=== PATIENT | female | born 1950 | race Caucasian/White ===

== ENCOUNTER 2019-09-30 09:53 | Emergency (ER) | payer OTHER ==
[~2019-09-30] VITALS: Ht 172.7 cm; Wt 72.1 kg
--- NOTE | 2019-09-30 09:55 | NUR ---
PT BIBA BLS TO ER BED 7
[2019-09-30 10:02] VITALS: BP 132/61
--- NOTE | 2019-09-30 10:02 | NUR ---
PUPILS ASSESSED, PERRLA VISUALIZED.
--- NOTE | 2019-09-30 10:02 | NUR ---
69 YO NONVERBAL [facility] PER EMS PT FELL AT 0615 THIS AM AND HAD 250 CC OF COFFEE GROUND EMESIS. UNABLE TO DETERMINE LOC. PT HAS A GTUBE. PRESENTED WITH DIARRHEA. SKIN INTACT. SIDE RAILS X2. HX: DM2, HYPERLIPIDEMIA, GERD, REFLUX DISEASE, DYSPHAGIA, HTN RX: PROSTAT SE, DULCOLAX, SIMVASTATIN, CLOPIDOGREL, PEPCID, ENALAPRIL, METOPROLOL NKA
--- NOTE | 2019-09-30 10:08 | NUR ---
ERMD BEDSIDE EVALUATING PT
--- NOTE | 2019-09-30 10:27 | NUR ---
LAB AT BEDSIDE.
[2019-09-30 10:40] LABS: BASOPHILS # (AUTO) 0.1 K/uL (0.00-0.22); BASOPHILS % (AUTO) 0.7 % (0.0-2.0); EOSINOPHILS % (AUTO) 0.3 % (0.0-4.0); HEMATOCRIT 42.1 % (36-48); HEMOGLOBIN 13.8 g/dL (12.0-16.0); LYMPHOCYTES # (AUTO) 2.9 K/uL (2.5-16.5); LYMPHOCYTES % (AUTO) 23.8 % (20.5-51.1); MEAN CORPUSCULAR HEMOGLOBIN 29 pg (27-31); MEAN CORPUSCULAR HGB CONC 33 g/dL (33-37); MEAN CORPUSCULAR VOLUME 87.7 fL (80-94); MONOCYTES # (AUTO) 0.5 K/uL (0.8-1.0); MONOCYTES % (AUTO) 4.4 % (1.7-9.3); NEUTROPHILS # (AUTO) 8.6 K/uL (1.8-7.7); NEUTROPHILS % (AUTO) 70.8 % (42.2-75.2); PLATELET COUNT (AUTO) 223 K/uL (140-450); RED CELL DISTRIBUTION WIDTH 13.3 % (11.6-13.7); WHITE BLOOD COUNT (AUTO) 12.2 K/uL (4.8-10.8)
[2019-09-30 10:47] LABS: ANION GAP 11.9 (8-16); CARBON DIOXIDE 29.6 mmol/L (21-32); CREATININE 0.7 mg/dL (0.6-1.3); POTASSIUM 3.5 mmol/L (3.5-5.1)
[2019-09-30 10:52] LABS: PROTHROMBIN TIME 10.5 secs (10.8-13.4)
[2019-09-30 10:53] LABS: ALBUMIN 3.1 g/dL (3.4-5.0); TOTAL BILIRUBIN 0.4 mg/dL (0.0-1.0)
[2019-09-30 11:04] LABS: BILIRUBIN,URINE NEGATIVE (NEGATIVE); BLOOD, URINE 2+ (NEGATIVE); COLOR,URINE YELLOW (YELLOW); LEUKOCYTE ESTERASE ,URINE 1+ (NEGATIVE); NITRITE, URINE NEGATIVE (NEGATIVE); UGLUCOSE NEGATIVE (NEGATIVE)
[2019-09-30 11:05] LABS: APPEARANCE,URINE CLOUDY (CLEAR)
[2019-09-30 11:13] LABS: RBC,URINE 11-20 (MOD) /HPF (0-5)
[2019-09-30 11:14] LABS: URINE AMORPHOUS URATE 1+ /HPF (None Seen)
--- NOTE | 2019-09-30 11:17 | NUR ---
IV ATTEMPTED AND UNSUCCESSFUL. ER MD MADE AWARE. MD SAID TO HOLD OFF ON IV ORDER FOR TIME BEING.
--- NOTE | 2019-09-30 11:38 | NUR ---
PT RESTING IN BED, SIDE RAIL X2
--- NOTE | 2019-09-30 13:42 | NUR ---
REPORT GIVEN TO RENA COLEMAN AT [facility].
--- NOTE | 2019-09-30 13:55 | NUR ---
VSS, PT RESTING IN BED, RR EVEN AND UNLABORED.
[2019-09-30 14:14] VITALS: BP 146/57
--- NOTE | 2019-09-30 14:14 | NUR ---
Patient discharged with v/s stable. Written and verbal after care instructions given and explained. Patient alert, oriented and verbalized understanding of instructions. Ambulance Transport with to snf. All questions addressed prior to discharge. ID band removed. Patient advised to follow up with PMD. Rx of keflex given. Patient educated on indication of medication including possible reaction and side effects. Opportunity to ask questions provided and answered.
== END 2019-09-30 14:14 | disposition home or self-care (01) ==
LOC: MED 09:53
DX: N39.0 Urinary tract infection, site not specified (principal); R11.2 Nausea with vomiting, unspecified; F03.90 Unspecified dementia, unspecified severity, without behavioral disturbance, psychotic disturbance, mood disturbance, and anxiety; I10 Essential (primary) hypertension; K21.9 Gastro-esophageal reflux disease without esophagitis; W06.XXXA Fall from bed, initial encounter; Y93.89 Activity, other specified; Y92.89 Other specified places as the place of occurrence of the external cause; Y99.8 Other external cause status
CPT/HCPCS: 36415; 80053; 81001; 83690; 84484; 85025; 85610; 85730; 86870; 86886; 86900; 86901; 87086; 99284

== ENCOUNTER 2020-11-27 11:58 | Emergency (ER) | payer OTHER ==
[~2020-11-27] VITALS: Ht 170.2 cm; Wt 74.8 kg
[2020-11-27 11:58] VITALS: BP 110/52
--- NOTE | 2020-11-27 11:59 | NUR ---
PT BIBA AND TAKEN TO BED 10.
--- NOTE | 2020-11-27 12:15 | NUR ---
70/F akash from [facility]. Per EMS, facility called 911 stating patient oxygen saturation dropped but they were unable to give an oxygen saturation and stated patients heart rate was in the 120s. When EMS arrived on scene patient was receiving 6L oxygen via nasal canula with an oxygen saturation of 96%. Patient is nonambulatory and nonverbal and is at baseline. Patient placed in gown, on bedside caridac monitor, blood pressure 110/52, pulse 92, oxygen 95% on room air, respirations 24.
[2020-11-27] MEDS ORDERED: SIMV20TA1 GT (12:18)
[2020-11-27] MEDS ORDERED: ASCO500T95 GT (12:18)
[2020-11-27] MEDS ORDERED: CLOP75TA55 GT (12:18)
[2020-11-27] MEDS ORDERED: NUTR887L GT (12:18)
[2020-11-27] MEDS ORDERED: METO25TA GT (12:18)
[2020-11-27] MEDS ORDERED: ENAL5TAB48 GT (12:18)
[2020-11-27] MEDS ORDERED: DOCU-299 GT (12:18)
[2020-11-27] MEDS ORDERED: ACET-2619 GT (12:18)
[2020-11-27] MEDS ORDERED: LANS15EC28 GT (12:18)
[2020-11-27] MEDS ORDERED: MULT-1328 GT (12:18)
[2020-11-27] MEDS ORDERED: NA P133E RC (12:19)
[2020-11-27] MEDS ORDERED: SENN-72 GT (12:19)
[2020-11-27] MEDS ORDERED: MAGN400S60 GT (12:19)
--- NOTE | 2020-11-27 12:45 | NUR ---
Monae swab collected and walked to lab.
--- NOTE | 2020-11-27 12:50 | NUR ---
Urine collected by straight catheter as ordered, urine sample walked down to lab.
[2020-11-27 13:03] LABS: APPEARANCE,URINE CLEAR (CLEAR); BILIRUBIN,URINE NEGATIVE (NEGATIVE); BLOOD, URINE NEGATIVE (NEGATIVE); COLOR,URINE YELLOW (YELLOW); LEUKOCYTE ESTERASE ,URINE NEGATIVE (NEGATIVE); NITRITE, URINE NEGATIVE (NEGATIVE); PH,URINE 5.5 (5.0-9.0); UGLUCOSE 3+ (NEGATIVE)
[2020-11-27 13:06] LABS: RBC,URINE 0-5 /HPF (0-5); WBC,URINE 0-5 /HPF (0-5)
[2020-11-27 13:07] LABS: BASOPHILS # (AUTO) 0.1 K/uL (0.00-0.22); BASOPHILS % (AUTO) 1.2 % (0.0-2.0); EOSINOPHILS # (AUTO) 0.2 K/uL (0-0.4); HEMATOCRIT 42.1 % (36-48); HEMOGLOBIN 13.7 g/dL (12.0-16.0); LYMPHOCYTES # (AUTO) 1.2 K/uL (2.5-16.5); LYMPHOCYTES % (AUTO) 10.6 % (20.5-51.1); MEAN CORPUSCULAR HEMOGLOBIN 29 pg (27-31); MEAN CORPUSCULAR HGB CONC 32 g/dL (33-37); MONOCYTES # (AUTO) 0.7 K/uL (0.8-1.0); MONOCYTES % (AUTO) 6.1 % (1.7-9.3); NEUTROPHILS # (AUTO) 9.2 K/uL (1.8-7.7); NEUTROPHILS % (AUTO) 80.1 % (42.2-75.2); PLATELET COUNT (AUTO) 172 K/uL (140-450); RED BLOOD CELL COUNT(AUTO) 4.74 MIL/uL (4.20-5.40); RED CELL DISTRIBUTION WIDTH 13.3 % (11.6-13.7); WHITE BLOOD COUNT (AUTO) 11.5 K/uL (4.8-10.8)
[2020-11-27] MEDS ORDERED: NACL 0.9% 1,000 ML IV ONE (13:35)
[2020-11-27] MEDS ORDERED: cefTRIAXone 1,000 MG VIAL ONE (13:42)
[2020-11-27 13:51] LABS: ALBUMIN 2.7 g/dL (3.4-5.0); ANION GAP 13.3 (8-16); ASPARTATE AMINOTRANSFERASE 27 U/L (15-37); CARBON DIOXIDE 28.5 mmol/L (21-32); CHLORIDE 110 mmol/L (98-107); CREATININE 0.7 mg/dL (0.6-1.3); GLUCOSE 386 mg/dL (74-106); POTASSIUM 3.8 mmol/L (3.5-5.1); SODIUM SERUM 148 mmol/L (136-145); TOTAL BILIRUBIN 0.6 mg/dL (0.0-1.0); UREA NITROGEN, BLOOD 30 mg/dL (7-18)
[2020-11-27] MEDS ORDERED: CEPH500C16 PO (14:15)
--- NOTE | 2020-11-27 14:58 | NUR ---
Patient will be picked up by [facility] BLS to be transferred back to [facility] care at 1630, report called and given to nurse at facility.
--- NOTE | 2020-11-27 17:33 | NUR ---
[facility] at bedside for transport.
[2020-11-27 17:53] VITALS: BP 120/60
[2020-12-04] MEDS ORDERED: AMOX-999 PO (10:20)
[2020-12-04] MEDS ORDERED: INSU100S22 SUBQ (10:20)
== END 2020-11-27 17:45 | disposition home or self-care (01) ==
LOC: MED 11:58
DX: E11.65 Type 2 diabetes mellitus with hyperglycemia (principal); Z20.822 Contact with and (suspected) exposure to COVID-19; E87.0 Hyperosmolality and hypernatremia; D72.829 Elevated white blood cell count, unspecified; N39.0 Urinary tract infection, site not specified; K21.9 Gastro-esophageal reflux disease without esophagitis; F03.90 Unspecified dementia, unspecified severity, without behavioral disturbance, psychotic disturbance, mood disturbance, and anxiety; I10 Essential (primary) hypertension; E78.5 Hyperlipidemia, unspecified; Z98.890 Other specified postprocedural states; Z79.899 Other long term (current) drug therapy; Z86.73 Personal history of transient ischemic attack (TIA), and cerebral infarction without residual deficits
CPT/HCPCS: 36415; 71045; 80053; 81001; 82948; 83605; 83690; 83880; 84484; 85025; 87040; 87086; 87426; 93005; 96365; 99285; J0696; J7030

== ENCOUNTER 2021-01-04 20:57 | Inpatient (IN) | payer OTHER, SELFPAY ==
[~2021-01-04] VITALS: Ht 165.1 cm; Wt 73.5 kg
--- NOTE | 2021-01-04 02:30 | NUR ---
ADMITTED THE PATIENT FROM ER VIA GURNEY. PATIENT AWAKE BUT LETHARGIC, NON VERBAL BASELINE. PT DX: WITH HYPOXIA AND UTI. PT WITH LABORED BREATHING, RR-40, SATING 94% TO 95% ON 5L/NC. CONNECTED THE PATIENT ON BUSINESS SERVICES OFFICER SHOWING ST, HR-108. HOB ELEVATED, SIDE RAILS UP X2, BED IN LOW POSITION AND BED ALARM ON. G- TUBE CLAMPED FOR NOW. IVF INFUSING ORDERED.CALL LIGHT WITHIN REACH. WILL CONTINUE POC.
[~2021-01-04 20:57] MED LIST: ACET-2619 GT; AMOX-999 PO; ASCO500T95 GT; CLOP75TA55 GT; DOCU-299 GT; ENAL5TAB48 GT; INSU100S22 SUBQ; LANS15EC28 GT; MAGN400S60 GT; METO25TA GT; MULT-1328 GT; NA P133E RC; NUTR887L GT; SENN-72 GT; SIMV20TA1 GT
[2021-01-04 21:00] VITALS: BP 136/46
[2021-01-04] MEDS ORDERED: cefTRIAXone 1,000 MG in DEXT 5% MINI-BAG PLUS 50 ML IV ONE (21:00)
--- NOTE | 2021-01-04 21:00 | NUR ---
CHIQUI MESA TAKEN TO BED #8
--- NOTE | 2021-01-04 21:00 | NUR ---
[place] [facility] [place] HYPOXIA SINCE THIS MORNING, PT HAS BEEN DESATURING IN THE 80% RANGE PER [facility] REPORT. PT ARRIVED ON NONREBREATHER, 15L, O2 SAT 99%. PT NOTED WITH LABORED BREATHING, TACHYPNEA, DIAPHORETIC. GCS 9, NONVERBAL, BEDBOUND AT BASELINE. PER [facility] REPORT, ACCUCHECK 496. IV 18G NOTED TO LEFT WRIST, EST. BY [facility]. PT INCONTINENT. TEMP. ON ARRIVAL 101.4. SKIN INTACT, NOTED WITH BARRIER CREAM TO SACRUM AND PROTECTIVE DRESSING BEHIND EARS. PT CONNECTED TO SENIOR COGNOS DEVELOPER. SAFETY MEASURES IN PLACE. WILL CONTINUE TO MONITOR.
--- NOTE | 2021-01-04 21:09 | NUR ---
EKG PERFORMED AT BEDSIDE. EKG READS SINUS TACHYCARDIA @ 104
[2021-01-04] MEDS ORDERED: NACL 0.9% 1,000 ML IV ONE (21:10)
--- NOTE | 2021-01-04 21:15 | NUR ---
# 16 FR Urinary catheter inserted utilizing sterile technique. Immediate return of 200 ml YELLOW, CLEAR urine noted. Urine sample collected and sent to lab. Pt tolerated procedure WELL.
--- NOTE | 2021-01-04 21:15 | NUR ---
X-Ray at bedside.
[2021-01-04] MEDS ORDERED: cefTRIAXone 1,000 MG VIAL ONE (21:26)
[2021-01-04 21:27] LABS: MEAN CORPUSCULAR HEMOGLOBIN 29 pg (27-31); MEAN CORPUSCULAR HGB CONC 31 g/dL (33-37); MEAN CORPUSCULAR VOLUME 92.6 fL (80-94); PLATELET COUNT (AUTO) 257 K/uL (140-450); RED BLOOD CELL COUNT(AUTO) 4.53 MIL/uL (4.20-5.40)
[2021-01-04] MEDS ORDERED: ZINC50TA76 GT (21:41)
--- NOTE | 2021-01-04 21:45 | NUR ---
DM OF NARES COLLECTED AND TAKEN TO LAB, GIVEN TO ADENIKE MARKETING TECHNOLOGIST.
[2021-01-04 21:48] LABS: APPEARANCE,URINE SL CLOUDY (CLEAR); BILIRUBIN,URINE NEGATIVE (NEGATIVE); BLOOD, URINE 3+ (NEGATIVE); COLOR,URINE YELLOW (YELLOW); LEUKOCYTE ESTERASE ,URINE 1+ (NEGATIVE); NITRITE, URINE NEGATIVE (NEGATIVE); PH,URINE 5.5 (5.0-9.0); UGLUCOSE 3+ (NEGATIVE)
[2021-01-04 21:49] LABS: ALBUMIN 3.1 g/dL (3.4-5.0); ANION GAP 13.2 (8-16); ASPARTATE AMINOTRANSFERASE 15 U/L (15-37); CARBON DIOXIDE 28.7 mmol/L (21-32); CHLORIDE 116 mmol/L (98-107); CREATININE 1.3 mg/dL (0.6-1.3); POTASSIUM 3.9 mmol/L (3.5-5.1); SODIUM SERUM 154 mmol/L (136-145); TOTAL BILIRUBIN 0.5 mg/dL (0.0-1.0)
[2021-01-04 21:55] LABS: WHITE BLOOD COUNT (AUTO) 25.2 K/uL (4.8-10.8)
[2021-01-04 21:56] LABS: LYMPHOCYTES % (MANUAL) 5 % (20-46); MONOCYTES % (MANUAL) 2 % (5-12)
[2021-01-04 21:59] LABS: GLUCOSE 797 mg/dL (74-106); UREA NITROGEN, BLOOD 68 mg/dL (7-18)
[2021-01-04] MEDS ORDERED: INSULIN REGULAR, HUMAN 100 UNIT/ML VIAL IVP ONE (22:05)
[2021-01-04 22:06] LABS: RBC,URINE 0-5 /HPF (0-5); WBC,URINE TOO MANY TO COUNT /HPF (0-5)
[2021-01-04] MEDS ORDERED: NACL 0.45% 1,000 ML IV SCH (22:10)
--- NOTE | 2021-01-04 22:14 | NUR ---
RT AT BEDSIDE.
[2021-01-04] MEDS ORDERED: NACL 0.9% 1,000 ML IV SCH (22:15)
--- NOTE | 2021-01-04 22:15 | NUR ---
PT PLACED ON 5L NASAL CANNULA, TOLERATING WELL, O2 SATURATION 96%.
--- NOTE | 2021-01-04 22:22 | NUR ---
PT TAKEN TO TELE ROOM 106A VIA RAFIA WITH RENA DACOSTA AND YVON BEVERLY.
--- NOTE | 2021-01-04 22:43 | NUR ---
Patient will be admitted to care of MD LUKE. Admited to TELEMETRY. Will go to room 106A. Belongings list completed. Report to RENA GIL.
[2021-01-04 23:00] VITALS: BP 120/47
[2021-01-05] MEDS ORDERED: ONDANSETRON 4 MG/2 ML VIAL IM/IVP PRN (00:25)
[2021-01-05] MEDS ORDERED: POTASSIUM CHLORIDE 40 MEQ, LIDOCAINE MPF 1% 25 MG in NACL 0.9% 250 ML IV PRN (00:25)
[2021-01-05] MEDS ORDERED: DEXTROSE 50% 50 ML SYR IVP PRN (00:25)
[2021-01-05] MEDS ORDERED: HYDROcodone/APAP 5/325 MG 1 TAB TAB PO PRN (00:25)
[2021-01-05] MEDS ORDERED: DOCUSATE SODIUM 100 MG GELCAP PO PRN (00:25)
[2021-01-05] MEDS ORDERED: MORPHINE SULFATE 2 MG/ML SYR IVP PRN (00:25)
[2021-01-05] MEDS ORDERED: SODIUM PHOS / POTASSIUM PHOS 1 PKT PDR PO PRN (00:25)
[2021-01-05] MEDS ORDERED: MAG SULF 2000 MG/WATER PREMIX 50 ML IV PRN (00:25)
--- NOTE | 2021-01-05 00:25 | NUR ---
RECEIVED A CALL FROM THE LAB REGARDING THE PATIENT LATEST LACTIC ACID 4.5. MESSAGED DR BUTLER AND NOTIFIED MD OF THE PATIENT LATEST LACTIC ACID RESULT . AWAITING FOR MD TO CALL BACK.
[2021-01-05] MEDS ORDERED: SODIUM PHOSPHATE 118 ML ENEM RC PRN (00:30)
[2021-01-05] MEDS ORDERED: MAGNESIUM HYDROXIDE 2400 MG/30 ML UDC GT PRN (00:30)
[2021-01-05] MEDS: BLOOD GLUCOSE MONITORING 1 DEV DEV FS SCH ×2 (00:43→07:00)
--- NOTE | 2021-01-05 00:47 | NUR ---
DR BUTLER AWARE OF THE PATIENT LACTIC ACID. MD ORDERED TO REPEAT BLOOD SUGAR CHECK OF THE PATIENT. LATEST BLOOD SUGAR IS 528. NOTIFIED DR BUTLER AND AWAITING FOR MD TO TO RESPOND.
[2021-01-05] MEDS: INSULIN LISPRO SLIDING SCALE 100 UNITS/ML VIAL SUBQ PRN ×2 (00:53→07:16)
--- NOTE | 2021-01-05 00:56 | NUR ---
Dr Zimmerman aware of the patient blood sugar 528. ordered to give humalog sliding scale 10 units SQ. Given to the patient on the right arm as ordered.
--- NOTE | 2021-01-05 01:22 | NUR ---
Started the g-tube feeding Glucerna 1.2 as ordered. SCD on as ordered. Will continue observation and POC.
--- NOTE | 2021-01-05 01:40 | NUR ---
DR BUTLER MADE AWARE THAT THE PATIENT NEEDED A CODE STATUS ORDER. CALLED MD AND AWARE AND PER DR BUTLER HE WILL PLACE THE ORDER IN THE MORNING.
[2021-01-05 02:16] LABS: ANION GAP 15.5 (8-16); CARBON DIOXIDE 25.6 mmol/L (21-32); CHLORIDE 120 mmol/L (98-107); CREATININE 1.5 mg/dL (0.6-1.3); POTASSIUM 3.1 mmol/L (3.5-5.1)
[2021-01-05 02:19] LABS: PHOSPHORUS 2.1 mg/dL (2.5-4.9)
[2021-01-05 02:20] LABS: GLUCOSE 607 mg/dL (74-106); SODIUM SERUM 158 mmol/L (136-145); UREA NITROGEN, BLOOD 69 mg/dL (7-18)
[2021-01-05 02:29] LABS: MAGNESIUM 2.4 mg/dL (1.8-2.4)
--- NOTE | 2021-01-05 03:13 | NUR ---
MESSAGED DR BUTLER OF THE PATIENT LATEST BMP RESULT. AWAITING FOR MD TO CALL BACK OR RESPOND.
--- NOTE | 2021-01-05 03:45 | NUR ---
MESSAGED DR BUTLER TO OBTAIN AN ORDER FOR POTASSIUM CHLORIDE PO OR THROUGH G -TUBE BECAUSE WE DON'T HAVE A PHARMACY AT NIGHT TO GET A POTASSIUM CHLORIDE WITH XYLOCAINE.
[2021-01-05 04:00] VITALS: BP 121/54
[2021-01-05] MEDS: ACETAMINOPHEN 325 MG TAB PO PRN ×2 (04:25→12:13)
[2021-01-05] MEDS ORDERED: INSULIN REGULAR, HUMAN 100 UNIT/ML VIAL SUBQ ONE (06:50)
--- NOTE | 2021-01-05 07:22 | NUR ---
PATIENT BLOOD SUGAR IS 465. DR BUTLER IS AWARE AND ORDERED TO GIVE 10 UNITS LISPRO INSULIN SLIDING SCALE (HUMALOG). GIVEN ORDERED.
--- NOTE | 2021-01-05 07:24 | NUR ---
PATIENT HAS BEEN SCREENED AND CATEGORIZED HIGH NUTRITION RISK. PATIENT WILL BE SEEN WITHIN 1-2 DAYS OF ADMISSION. 01/06/21-01/07/21 KARLA KIRK MS, RDN
--- NOTE | 2021-01-05 07:30 | NUR ---
PAGED DR BUTLER TO NOTIFY MD OF THE PATIENT LATEST TROPONIN LEVEL, 0.137. AWAITING FOR MD TO CALL BACK AND RESPOND.
[2021-01-05] MEDS ORDERED: NACL 0.45% 1,000 ML IV SCH (07:35)
[2021-01-05 08:00] VITALS: BP 106/45
--- NOTE | 2021-01-05 08:15 | NUR ---
LISPRO INSULIN (HUMALOG)10 UNITS WAS GIVEN EARLIER AND USED THE SLIDING SCALE INSTEAD BECAUSE PHARMACY TAKING SO LONG TO VERIFY THE ORDER.
[2021-01-05] MEDS ORDERED: INSULIN LISPRO SLIDING SCALE 100 UNITS/ML VIAL SUBQ SCH (08:30)
[2021-01-05] MEDS ORDERED: CLOPIDOGREL 75 MG TAB GT SCH (09:00)
[2021-01-05] MEDS ORDERED: PANTOPRAZOLE 40 MG INJ VIAL IVP SCH (09:00)
[2021-01-05] MEDS ORDERED: ENALAPRIL 5 MG TAB GT SCH (09:00)
[2021-01-05] MEDS ORDERED: DOCUSATE 100 MG/10 ML UDC GT SCH (09:00)
[2021-01-05] MEDS ORDERED: METOPROLOL 25 MG TAB GT SCH (09:00)
--- NOTE | 2021-01-05 09:15 | NUR ---
HELD PATIENT VASOTEC AND METOPROLOL. PT BP 99/47. DR BUTLER AT THE NURSE STATION MADE AWARE OF THE PT BP AND ASKED MD TO PUT PARAMETERS ON BOTH MEDS. WILL HOLD BOTH MEDS.
--- NOTE | 2021-01-05 10:10 | NUR ---
Administered all the scheduled medications and education provided regarding the medication. Patient tolerated it well . No adverse drug reaction noted. Will continue to observe.
--- NOTE | 2021-01-05 11:05 | NUR ---
placed pt on 15 liters due to frequent desating.
--- NOTE | 2021-01-05 11:56 | NUR ---
ENDORSED PATIENT TO RENA ZAMAN FOR CONTINUITY OF CARE. PATIENT STABLE. SIGNING OFF.
[2021-01-05 12:00] VITALS: BP 81/37
[2021-01-05] MEDS ORDERED: PIPERACILLIN/TAZOBACTAM 2.25 GM in DEXTROSE 5% 50 ML IV SCH (12:00)
--- NOTE | 2021-01-05 12:10 | NUR ---
SEAM TAPER MACHINE notified this nurse of 102.3 temperature. Implementing cooling measures and PRN tylenol
--- NOTE | 2021-01-05 12:15 | NUR ---
Pt awake in bed with eyes open. Pt on cardiac tele monitor. Pt O2 saturation 90-92% on 15L NC
[2021-01-05 12:32] LABS: ANION GAP 11.7 (8-16); CARBON DIOXIDE 28.8 mmol/L (21-32); CHLORIDE 123 mmol/L (98-107); CREATININE 1.9 mg/dL (0.6-1.3); POTASSIUM 3.5 mmol/L (3.5-5.1)
--- NOTE | 2021-01-05 12:45 | NUR ---
MD Zimmerman made aware pt BS 441. BP low at 70/30s on bilateral extremities. also made aware pt was given tylenol for 102.3 temperature. MD Zimmerman gave verbal order to start pt on 1L bolus IV once
--- NOTE | 2021-01-05 12:46 | NUR ---
MD also made aware pt O2 saturation on 15L is between 85%-90%. MD gave verbal order to place pt on high-flow nasal cannula
--- NOTE | 2021-01-05 12:48 | NUR ---
RT called to place pt on high flow
[2021-01-05] MEDS ORDERED: NACL 0.9% 1,000 ML IV SCH (12:50)
[2021-01-05] MEDS ORDERED: VANCOMYCIN PER PHARMACY MC PRN (12:55)
[2021-01-05 13:06] VITALS: BP 71/37
--- NOTE | 2021-01-05 13:06 | NUR ---
RT lila and RT art placed pt on hfnc at 40 liters and 100% fio2 due to consistent desating on 15 liters. per staffing pt is dnr/dni. if pt continues to desat then will consider bipap start.
--- NOTE | 2021-01-05 13:20 | NUR ---
Pt placed on high-flow nasal cannula by RT at 40L 100% oxygen. Pt O2 saturation now 93%-96%. Will continue to monitor.
[2021-01-05 13:21] LABS: SODIUM SERUM 160 mmol/L (136-145)
[2021-01-05 13:22] LABS: GLUCOSE 546 mg/dL (74-106); UREA NITROGEN, BLOOD 83 mg/dL (7-18)
[2021-01-05 13:30] LABS: BASOPHILS % (AUTO) 0.2 % (0.0-2.0); EOSINOPHILS % (AUTO) 0.3 % (0.0-4.0); HEMATOCRIT 35.1 % (36-48); HEMOGLOBIN 11.2 g/dL (12.0-16.0); LYMPHOCYTES # (AUTO) 1.2 K/uL (2.5-16.5); LYMPHOCYTES % (AUTO) 12.2 % (20.5-51.1); MEAN CORPUSCULAR HEMOGLOBIN 29 pg (27-31); MEAN CORPUSCULAR HGB CONC 32 g/dL (33-37); MEAN CORPUSCULAR VOLUME 90.1 fL (80-94); MONOCYTES # (AUTO) 0.3 K/uL (0.8-1.0); MONOCYTES % (AUTO) 3.3 % (1.7-9.3); NEUTROPHILS # (AUTO) 8.6 K/uL (1.8-7.7); PLATELET COUNT (AUTO) 159 K/uL (140-450); RED CELL DISTRIBUTION WIDTH 14.8 % (11.6-13.7); WHITE BLOOD COUNT (AUTO) 10.2 K/uL (4.8-10.8)
--- NOTE | 2021-01-05 13:42 | NUR ---
MD Zimmerman made aware of critical labs Na160 Glucose 546 and BUN 83. Awaiting for orders at this time.
[2021-01-05] MEDS ORDERED: DEXTROSE 5% 1,000 ML IV SCH (13:45)
--- NOTE | 2021-01-05 13:54 | NUR ---
Received text back from MD Zimmerman gave verbal order to give 12 units of humalog subq x1 dose. MD will changed order to D5W. Place order for nephro consult
[2021-01-05 14:00] VITALS: BP 84/37
[2021-01-05] MEDS ORDERED: VANCOMYCIN 1,000 MG in DEXTROSE 5% 250 ML IV SCH (14:00)
[2021-01-05] MEDS ORDERED: INSULIN LISPRO 100 UNITS/ML VIAL SUBQ SCH (14:00)
--- NOTE | 2021-01-05 14:05 | NUR ---
MD Zimmerman made aware. No improvement after IV bolus. Right arm BP 79/33 and left arm 84/37. Awaiting for orders at this time.
[2021-01-05] MEDS ORDERED: MIDODRINE 5 MG TAB GT SCH (14:10)
--- NOTE | 2021-01-05 14:20 | NUR ---
Awaiting for MD to place order for Midodrine
[2021-01-05 15:00] VITALS: BP 59/32
--- NOTE | 2021-01-05 15:00 | NUR ---
Pt family called to inform on pt change in status. Family made aware and told to keep them posted.
--- NOTE | 2021-01-05 15:12 | NUR ---
Cardiology at bedside
[2021-01-05] MEDS ORDERED: NOREPINEPHRINE 8 MG in DEXTROSE 5% 250 ML IV PRN (15:15)
--- NOTE | 2021-01-05 15:19 | NUR ---
MD Zimmerman made aware pt BP 47/22.
[2021-01-05] MEDS ORDERED: NACL 0.9% 1,000 ML IV PRN ×2 (15:20)
--- NOTE | 2021-01-05 15:20 | NUR ---
Nephro evaluating pt at bedside
[2021-01-05] MEDS ORDERED: DOPPLER MC ONE (15:24)
--- NOTE | 2021-01-05 15:25 | NUR ---
Upon assessment of pt, pt was found pulseless and unresponsive. MD Ordoñez made aware.
--- NOTE | 2021-01-05 15:27 | NUR ---
MD Ordoñez pronounced at 1527.
--- NOTE | 2021-01-05 15:45 | NUR ---
Family notified and updated on pt status.
--- NOTE | 2021-01-05 15:50 | NUR ---
[facility] called. Spoke to Addis. Reference Number [id number]. [facility] will not be following up.
--- NOTE | 2021-01-05 15:58 | NUR ---
[employer] called . Will call back.
--- NOTE | 2021-01-05 16:30 | NUR ---
Mother Humphrey requested [facility].
--- NOTE | 2021-01-05 16:49 | NUR ---
Operating Room Surgical Technician called, spoke to V[place] Vic Hernández. Case Number [phone].
--- NOTE | 2021-01-05 17:05 | NUR ---
Called [facility] to flower buncher or picker body. Will call back with an ETA.
--- NOTE | 2021-01-05 17:15 | NUR ---
Postmortem care provided at this time
--- NOTE | 2021-01-05 18:50 | NUR ---
Mortuary here to tack picker pt body
[2021-01-05] MEDS ORDERED: SIMVASTATIN 20 MG TAB GT SCH (21:00)
[2021-01-05] MEDS ORDERED: INSULIN LANTUS 100 UNITS/ML 10 ML VIAL SUBQ SCH (21:00)
[2021-01-05] MEDS ORDERED: SENNA 8.6 MG TAB GT SCH (21:00)
== END 2021-01-05 15:27 | DRG 871 ==
LOC: MED 20:57 → MTU 21:59
PROVIDERS: ADMIT Hospitalist; ATTEND Hospitalist
DX: A41.9 Sepsis, unspecified organism (principal); J96.01 Acute respiratory failure with hypoxia; R65.21 Severe sepsis with septic shock; N17.0 Acute kidney failure with tubular necrosis; N39.0 Urinary tract infection, site not specified; E87.0 Hyperosmolality and hypernatremia; G93.40 Encephalopathy, unspecified; Z66 Do not resuscitate; E11.65 Type 2 diabetes mellitus with hyperglycemia; F03.90 Unspecified dementia, unspecified severity, without behavioral disturbance, psychotic disturbance, mood disturbance, and anxiety; K21.9 Gastro-esophageal reflux disease without esophagitis; R13.10 Dysphagia, unspecified; D64.9 Anemia, unspecified; I25.10 Atherosclerotic heart disease of native coronary artery without angina pectoris; E78.5 Hyperlipidemia, unspecified; I12.9 Hypertensive chronic kidney disease with stage 1 through stage 4 chronic kidney disease, or unspecified chronic kidney disease; N18.9 Chronic kidney disease, unspecified; E11.22 Type 2 diabetes mellitus with diabetic chronic kidney disease; I46.9 Cardiac arrest, cause unspecified; Z93.1 Gastrostomy status; Z86.73 Personal history of transient ischemic attack (TIA), and cerebral infarction without residual deficits; Z20.822 Contact with and (suspected) exposure to COVID-19
CPT/HCPCS: 36415; 36600; 51702; 71045; 80048; 80053; 81001; 82803; 82948; 83036; 83605; 83735; 83880; 84100; 84484; 85025; 87040; 87081; 87086; 93005; 96365; 96375; 99285; C9113; J0696; J1815; J2001; J2543; J3370; J3480; J7030; J7060